=== PATIENT | male | born 1975 | race Caucasian/White ===

== ENCOUNTER 2025-04-06 17:22 | Inpatient (IN) | payer OTHER ==
[2025-04-06 18:00] VITALS: BMI 24.5
[2025-04-06] MEDS ORDERED: LOPERAMIDE HCL 2 MG CAPSULE PO PRN (18:45)
[2025-04-06] MEDS ORDERED: hydrOXYzine PAMOATE 25 MG CAPSULE (FP) PO PRN (18:45)
[2025-04-06] MEDS ORDERED: ONDANSETRON *ODT* 4 MG TABLET SL PRN (18:45)
[2025-04-06] MEDS ORDERED: NALOXONE (NARCAN) HCL 4 MG/0.1 ML SPRAY NS PRN (18:45)
[2025-04-06] MEDS ORDERED: DICYCLOMINE HCL 10 MG CAPSULE PO PRN (18:45)
[2025-04-06] MEDS ORDERED: NICOTINE POLACRILEX 2 MG GUM BUC PRN (18:45)
[2025-04-06] MEDS ORDERED: NICOTINE POLACRILEX 2 MG LOZENGE BC PRN (18:45)
[2025-04-06] MEDS ORDERED: BENZONATATE 200 MG CAPSULE PO PRN (18:45)
[2025-04-06] MEDS ORDERED: MAGNESIUM HYDROX 2400MG/30ML ORAL SUSPENSION 30 ML CUP PO PRN (18:45)
[2025-04-06] MEDS ORDERED: POLYETHYLENE GLYCOL (HEALTHYLAX) 3350 17 GM PACKET PO PRN (18:45)
[2025-04-06] MEDS ORDERED: BENZOCAINE/MENTHOL (CHLORASEPTIC ) LOZENGE MM PRN (18:45)
[2025-04-06] MEDS ORDERED: guaiFENesin 600 MG TABLET.ER (FP) PO PRN (18:45)
[2025-04-06] MEDS ORDERED: BISMUTH SUBSALICYLATE 524 MG/30 ML PO PRN (18:45)
[2025-04-06] MEDS ORDERED: MAG HYDROX/AL HYDROX/SIMETH 30 ML UNIT-DOSE CUP PO PRN (18:45)
[2025-04-06] MEDS ORDERED: IBUPROFEN 400 MG TABLET (FP) PO PRN (18:45)
[2025-04-06] MEDS: MELATONIN 5 MG TABLETS PO SCH (22:47)
[2025-04-06] MEDS: THIAMINE 100 MG TABLET PO SCH (22:47)
[2025-04-07] MEDS: PRENATAL VITAMINS W/ FOLIC ACID TABLET (FP) PO SCH (10:53)
[2025-04-07] MEDS: LOSARTAN POTASSIUM 50 MG TABLET PO SCH (10:53)
[2025-04-10] MEDS: IBUPROFEN 600 MG TABLET (FP) PO PRN (10:23)
[2025-04-10 11:12] LABS: MCHC 31.2 g/dl (32.3-36.5); MEAN CELL VOLUME 91.2 fl (79.0-92.2); MEAN PLT VOLUME 10.9 fl (9.4-12.4); RDW 14.6 % (12.1-15.9)
[2025-04-10 12:02] LABS: CO2 27.0 mmol/L (21-32); GLUCOSE,RANDOM 106.0 mg/dL (74-106)
[2025-04-10 12:05] LABS: CREATININE 0.67 mg/dL (0.55-1.3); SGOT/AST 21.0 U/L (15-37); SGPT/ALT 43.0 U/L (13-61)
[2025-04-10 12:07] LABS: TOT PROT 6.5 g/dl (6.4-8.2)
[2025-04-10 12:08] LABS: ALK PHOS 114.0 U/L (45-117)
[2025-04-10] MEDS: ACETAMINOPHEN 325 MG TABLET (FP) PO PRN (14:47)
[2025-04-10] MEDS: METHOCARBAMOL 500 MG TABLET PO PRN (14:47)
[2025-04-10 16:58] VITALS: BP 127/77; PULSE 72; RESP 16; TEMP 97.7
== END 2025-04-10 18:57 | disposition home or self-care (01) | DRG 897 ==
LOC: YASAS 17:22 → Y3N 19:37
PROVIDERS: ADMIT Neuromusculoskeletal Medicine & OMM; ATTEND Allergy & Immunology
PROC: HZ2ZZZZ Detoxification Services for Substance Abuse Treatment (ICD-10-PCS; principal; 2025-04-06)
DX: F10.230 Alcohol dependence with withdrawal, uncomplicated (principal); I10 Essential (primary) hypertension; F41.8 Other specified anxiety disorders; Z89.612 Acquired absence of left leg above knee
CPT/HCPCS: 36415; 80053; 80305; 85027; 86780; 93005; 93010